=== PATIENT | male | born 1950 | race Caucasian/White ===

== ENCOUNTER → 2022-06-29 | Outpatient (CLI) | payer MEDICARE ==
--- NOTE | 2022-06-30 00:52 | MR ---
EXAMINATION TYPE: MR cervical spine wo con DATE OF EXAM: 06/29/2022 COMPARISON: None HISTORY: Balance issues, falls, left arm pain. History of fall from tree. Multiplanar multiecho imaging of the cervical spine with no contrast. The cervical vertebra have Normal alignment. There is mild narrowing at the C5-6 disc space. There is minimal posterior disc bulging at C5-6. No spinal stenosis. There is developmentally adequate spinal canal. Cervical spinal cord has normal signal pattern. No edema. Brainstem is intact. There is no ce rvical paraspinal mass. No focal bone destruction. No compression fracture. IMPRESSION: Mild degenerative disc changes at C5-6 with disc bulging. No spinal stenosis. Spinal canal measures 9 mm.
== END | disposition home or self-care (01) ==
LOC: RADMRIMAIN 19:17
PROVIDERS: ATTEND Psychiatry & Neurology Neurology
DX: M50.222 Other cervical disc displacement at C5-C6 level (principal)
CPT/HCPCS: 72141

== ENCOUNTER → 2023-05-24 | Outpatient (CLI) | payer MEDICARE ==
--- NOTE | 2023-05-26 10:57 | MR ---
EXAMINATION TYPE: MR lumbar spine wo con DATE OF EXAM: 05/24/2023 7:52 PM CLINICAL INDICATION:Male, 72 years old with history of M54.16 RADICULOPATHY, LUMBAR REGION; PHH, Low back pain that goes down legs COMPARISON: None TECHNIQUE: Multi planar, multi sequence imaging was performed utilizing: T1-weighted, T2-weighted, a nd turbo inversion recovery imaging of the lumbar spine. IV Contrast: cc . (None if empty) FINDINGS: Alignment: The lumbar vertebral bodies have preserved heights with grade 1 anterolisthesis of L4 on L 5. Cord: The conus medullaris and the distal spinal cord appear unremarkable with regards to their signa l intensity and morphology. Bones/Discs: Mild degeneration changes throughout the spine with osteophyte formation and facet joint arthropathy. Intervertebral disc signal is maintained. T12-L1: No evidence of significant spinal canal stenosis or neural foraminal stenosis. L1-L2: No evidence of significant spinal canal stenosis or neural foraminal stenosis. L2-L3: Disc bulge and facet joint arthropathy result in mild spinal canal and moderate bilateral neur al foraminal stenosis. L3-L4: Disc bulge and facet joint arthropathy result in moderate to severe spinal canal and moderate to severe bilateral neural foraminal stenosis. L4-L5: Disc uncovering from grade 1 anterolisthesis and facet joint arthropathy with mild spinal delia l stenosis and moderate bilateral neural foraminal stenosis. L5-S1: The disc is rounded posterior morphology without significant spinal canal stenosis. Facet join t arthropathy with moderate bilateral neural foraminal stenosis. No significant spinal canal or neural foraminal stenosis in the remainder of the visualized levels. Other findings: Bilateral high T2 simple appearing renal cysts. IMPRESSION: 1. L3-L4 moderate to severe spinal canal stenosis secondary to grade 1 anterolisthesis and facet adrienne nt arthropathy. 2. Multilevel degeneration changes with neural foraminal stenosis worse from L2 to L5 with moderate and moderate to severe stenosis.
== END | disposition home or self-care (01) ==
LOC: RADMRIMAIN 19:30
PROVIDERS: ATTEND Family Medicine
DX: M48.061 Spinal stenosis, lumbar region without neurogenic claudication (principal); M43.16 Spondylolisthesis, lumbar region; M47.26 Other spondylosis with radiculopathy, lumbar region; M99.73 Connective tissue and disc stenosis of intervertebral foramina of lumbar region
CPT/HCPCS: 72148

== ENCOUNTER → 2023-07-21 | Outpatient (CLI) | payer MEDICARE ==
--- NOTE | 2023-07-21 13:17 | CT ---
EXAMINATION TYPE: CT lumbar spine wo con DATE OF EXAM: 07/21/2023 1:10 PM COMPARISON: none HISTORY: low back pain, hx of injury xfew years ago. CT DLP: 867 mGycm Automated exposure control for dose reduction was used. Unenhanced CT of the lumbar spine was performed. Bone and soft tissue window settings are submitted as well as coronal and sagittal reconstructions. L1-L2: Normal disc space height. No disc herniation protrusion or central stenosis. No facet joint arthropathy. No evidence for foraminal encroachment. L2-L3: Mild disc desiccation with posterior disc bulge. There is effacement of the ventral thecal sac with mild central stenosis. L3-L4: Lrsh-xo-imzfrzml disc desiccation posterior disc bulge. Hypertrophy of ligamentum flavum and f acet joint arthropathy resulting in moderate central stenosis. L4-L5: Rdsz-vh-ctxghvyv disc desiccation posterior disc bulge. Hypertrophy of ligamentum flavum and f acet joint arthropathy resulting in moderate central stenosis.] 1 anterolisthesis of 2 mm. Mild bilat eral foraminal encroachment. L5-S1: Normal disc space height. No disc herniation protrusion or central stenosis. No facet joint arthropathy. No evidence for foraminal encroachment. IMPRESSION: Bilateral central stenosis as outlined above.
== END | disposition home or self-care (01) ==
LOC: RADCTMAIN 11:38
PROVIDERS: ATTEND Orthopaedic Surgery
DX: M47.26 Other spondylosis with radiculopathy, lumbar region (principal); M48.061 Spinal stenosis, lumbar region without neurogenic claudication; M43.16 Spondylolisthesis, lumbar region; M51.16 Intervertebral disc disorders with radiculopathy, lumbar region
CPT/HCPCS: 72131

== ENCOUNTER → 2023-09-01 | Outpatient (CLI) | payer MEDICARE ==
[2023-09-01 09:04] VITALS: BP 148/72; PULSE 64; RESP 16
--- NOTE | 2023-09-01 11:03 | P.PAINPG ---
Objective - Vital Signs Vital signs: Intake & Output 08/31/23 09/01/23 09/01/23 18:59 06:59 18:59 Weight 92.533 kg PQRS Measure Charge Sheet Comment: HISTORY OF PRESENT ILLNESS: A 73 yr old male as a referral from Dr Mason presents today w severe and chronic LBP x 2 yrs secondary to DDD, spondylosis and facet arthropathy without myelopathy for evaluation. Pt states pain level is provoked at 6 /10 in intensity, constant, localized in the lower lumbar spine, predominantly axial, tight in character w occasional shooting pain towards the L buttock and LLE. Pain is provoked by walking for periods > 20 min. Pain is alleviated by PT integrated w massage x 6 wks in Nov 2022, physician guided home stretches every morning since Nov 2022, medications (Tramadol, Baclofen, Neurontin, Tyl), topical, repositioning and rest. Oswestry axial pain score at 31. PMH: OA, CAD, Hyperlipidemia, HTN, [place], MDD, BPH PSH: Heart Catheterization With RCA Stent SH: Daily tobacco use, Rare ETOH use, No illicit drug use FH: Noncontributory All: See list Meds: See list REVIEW OF ORGAN SYSTEMS: CONSTITUTIONAL: No fevers or chills. No recent weight loss. NEUROLOGICAL: + numbness and tingling along the distal extremities. No seizure disorders or headaches. MUSCULOSKELETAL: + pain PSYCHIATRIC: Denies current depression or suicidal thoughts. Physical Examinations : Constitutional : Cooperative , not in acute distress . Neurologic : Cranial nerve II to XII intact. No focal neurological deficits. Psychiatric : alert & oriented x 3. Matching mood & appropriate affect. Judgment & insight intact. Musculoskeletal : Cervical Spine Motor strength in the deltoid and biceps: Normal right side. Normal Left side Motor strength biceps and the wrist extensors: Normal right side . Normal left side Motor strength in the triceps muscle: Normal right side. Normal left side Deep tendon reflexes: Normal at the biceps. Normal at Brachioradialis. Normal at triceps Vertebral body tenderness to deep palpation over Cervical facet loading test: positive bilaterally Spurling test: positive bilaterally Neck distraction test: positive bilaterally Rosaura sign: positive bilaterally Lumbar spine Motor strength lower extremities ,thigh and legs 5/5 Right side , 5/5 Left side Deep tendon reflexes : Normal Knee Jerk. Normal Ankle Jerk Vertebral body tenderness over L4 Hu Test positive Lumbar facet Loading Test: positive Right / positive Left Range of motion of the lumbar spine Flexion 30 degrees, extension 10 degrees Straight Leg Raise test: Left/ Right positive at 30 degrees Alma test: positive right / positive left. Severe tenderness over the Sacroiliac joint on the Right / Left sides Gaenslen test: positive bilaterally Seated flexion test: positive bilaterally. Sacral spine : Severe tenderness over the Sacroiliac joint: right side / left side Range of motion: Flexion of the lumbar spine <60 degrees Range of motion: Extension of the lumbar spine <20 degrees Gaenslen's Test positive Alma test: positive right side / left side Thigh Thrust Test Sacral Thrust Test Imaging: CT noncontrast of the lumbar spine from 07/21/23. Assessment/ Plan : Lumbar DDD Recommendation of MARK L4-L5 #1. May need a series of injections for optimal pain relief. Risks, benefits of procedure discussed and patient verbalized understanding. Admits to anti- coagulant use or medical history of diabetes. Protocol for discontinuation/ continuation of medications andrea procedure discussed. Paragon 5/325mg #$15 NR Use, side effects, adverse reactions, safe storage discussed. All questions answered. I have spent greater than 30 minutes on patient care today. Dr Miller was a vailable by phone for the evaluation of this patient. The time was used to review the medical records including relevant urine studies and Prescription history (MAPs), review of the available imaging, evaluation and examination of the patient, coordination of care with the medical staff and if applicable referring physicians, as well as creation of the medical record PQRS Narrative: Smoking Status Current every day smoker Home Medications: Ambulatory Orders ALPRAZolam 1 mg PO BID PRN 05/04/16 Escitalopram [Lexapro] 20 mg PO DAILY 05/04/16 Simvastatin 40 mg PO HS 05/04/16 Venlafaxine HCl [Venlafaxine HCl ER] 37.5 mg PO BID 05/04/16 buPROPion XL [Wellbutrin Xl] 300 mg PO DAILY 05/04/16 lamoTRIgine [Lamotrigine] 25 mg PO BID 05/04/16 Baclofen [Lioresal] 20 mg PO 09/01/23 Gabapentin 300 mg PO BID 09/01/23 HYDROcodone/APAP 5-325MG [Paragon 5-325] 1 tab PO Q4HR PRN 3 Days #15 tab 09/01/23 Metoprolol Tartrate [Lopressor] 50 mg PO BID 09/01/23 Simvastatin [Zocor] 80 mg PO 09/01/23 lisinopriL 2.5 mg PO 09/01/23 Controlled Substance Measures - Controlled Substance Measures Is patient prescribed a controlled substance at discharge?: Yes When asked, does pt state using other controlled substances?: Yes If prescribed controlled substance>3 days was MAPS reviewed?: Prescribed <3 Days If opioid is for acute pain is fill amount 7 days or less?: Yes Was information provided regarding opioid addiction?: Yes
== END ==
LOC: PNWHC3 08:19
PROVIDERS: ATTEND Specialist
DX: M43.16 Spondylolisthesis, lumbar region (principal); M47.16 Other spondylosis with myelopathy, lumbar region; I66.03 Occlusion and stenosis of bilateral middle cerebral arteries; M51.16 Intervertebral disc disorders with radiculopathy, lumbar region; F17.200 Nicotine dependence, unspecified, uncomplicated; M19.90 Unspecified osteoarthritis, unspecified site; I25.10 Atherosclerotic heart disease of native coronary artery without angina pectoris; E78.5 Hyperlipidemia, unspecified; I10 Essential (primary) hypertension; I25.2 Old myocardial infarction; F32.9 Major depressive disorder, single episode, unspecified; N40.0 Benign prostatic hyperplasia without lower urinary tract symptoms; Z79.899 Other long term (current) drug therapy
CPT/HCPCS: 99211

== ENCOUNTER 2023-09-28 08:46 | Day surgery (SDC) | payer MEDICARE ==
[~2023-09-28 08:46] MED LIST: LACTATED RINGERS 1,000 ML IV SCH
[2023-09-28 09:53] VITALS: TEMP 97.6
[2023-09-28] MEDS ORDERED: IOPAMIDOL M300 15ML VIAL ONE (10:23)
[2023-09-28] MEDS ORDERED: methylPREDNISolone ACETATE 80 MG/ML 1 ML VIAL ONE (10:23)
[2023-09-28] MEDS ORDERED: ROPIVACAINE 5MG/ML 20ML VIAL ONE (10:23)
--- NOTE | 2023-09-28 10:49 | P.PCN ---
Description of Procedure: PREOPERATIVE DIAGNOSIS: 1- Lumbar Degenerative Disc Diseases 2-Lumbar spondylosis with Facet arthropathy without myelopathy. 3-lumbar spinal stenosis POSTOPERATIVE DIAGNOSIS: 1-lumbar degenerative disc disease. 2-lumbar spondylosis with facet arthropathy without myelopathy. 3-lumbar spinal stenosis. PROCEDURE Injection of radio contrast material into L4-5 interspace, interpretation of epidurogram, injection of steroid at L4- 5 epidural space under fluoroscopic guidance. ANESTHESIA: Lidocaine 1% subcutaneously. In OR continuous pulse ox, EKG, blood pressure and verbal communication was maintained with the patient. EBL: Minimal PROCEDURE INDICATION: Before the procedure were discussed with the patient detailed procedure, alternatives, complications including infection, bleeding, nerve damage, paralysis all of which could be permanent. Patient understands and all questions were answered. PROCEDURE DESCRIPTION : After getting consent, patient in OR in prone position. Back was prepped with chlorhexidine and draped in sterile fashion. After injecting 10 mL of 1% lidocaine subcutaneously, a 20-gauge Tuohy needle was introduced at L4 5 interspace with loss of resistance technique using a syringe filled with air. Negative CSF, negative blood, negative paresthesia. Needle position was confirmed with AP and lateral view of the fluoroscope. After repeat negative aspiration 2 mL of Omnipaque 200 water soluble contrast was injected. Contrast was noted in the epidural space. No contrast was noted into intrathecal or intravascular space. After repeat negative aspiration 6 mL solution was injected intermittently which consists of 5 mL of preservative-free normal saline mixed with 1 mL of 80 mg Depo-Medrol. Needle was withdrawn intact. Skin was cleansed and Band-Aids was applied. DISPOSITION / PLANS: The patient tolerated the procedure well. No complication. The patient was placed in a supine position and transferred to the recovery area in a stable condition for observation. There was no evidence of lower extremity motor or sensory deficit after the procedure. Patient was discharged from the recovery room after meeting discharge criteria. Home discharge instructions were given to the patient by the staff. The patient was reexamined prior to discharge. The patient will schedule a follow up in the clinic in 2-4 weeks.
[2023-09-28 11:07] VITALS: BP 139/77; PULSE 57; RESP 14
--- NOTE | 2023-09-28 16:07 | FL ---
EXAMINATION TYPE: FL guided pain mgmt statistic DATE OF EXAM: 09/28/2023 FLUOROSCOPY Fluoroscopy time of 11.7 seconds was used during lumbar epidural steroid injection. 2 image/s docume nt/s the procedure. DAP- 0.40973 mGycm2.
== END 2023-09-28 10:58 | disposition home or self-care (01) ==
LOC: ORPAIN 08:46
PROVIDERS: ATTEND Pain Medicine Interventional Pain Medicine
DX: M51.36 Other intervertebral disc degeneration, lumbar region (principal); M48.061 Spinal stenosis, lumbar region without neurogenic claudication; M47.816 Spondylosis without myelopathy or radiculopathy, lumbar region; Z79.82 Long term (current) use of aspirin
CPT/HCPCS: 62323; J1040; Q9967; J2795